=== PATIENT | female | born 1940 | race Caucasian/White ===

== ENCOUNTER 2018-04-21 14:12 | Emergency (ER) | payer OTHER ==
--- NOTE | 2018-04-21 14:21 | ED AMS/SEIZURE/WEAK/DIZZY ---
History of Present Illness General Chief Complaint: General Adult Stated Complaint: DIZZINESS Source: patient, family Exam Limitations: no limitations Allergies Uncoded Allergies: Allergy Other NKA Med Allergies NKDA Triage Nurses Notes Reviewed? yes Onset: Abrupt Duration: hour(s): Timing: multiple episodes today Injury Environment: home Severity: moderate HPI: 77yo female with PMH of HTN, Stage 3 Renal Failure, insomnia c/o dizziness. After waking up this morning, pt had new onset of dizziness, reporting that she felt like the room was spinning. The dizziness worsens when she sits/stands up and feels better when she lies back down. She is also complaining of concurrent nausea and had an episode of vomiting this morning. Vomitus was clear and phlegm -like. Pt reports that she has not been drinking much the last few days and has not eaten anything today. Pt also c/o of "ear popping" and muffled hearing, especially in the left ear, but denies tinnitus. Pt denies any headaches, fevers , chills, chest pain. Denies any recent head trauma or falls. Pt has had insomnia last few nights, so she took 12.5mg Ambien last night to help her fall asleep. She has taken Ambien before and never had any side effects in the past. (Ana GARCIA,Leonila Stafford) Vital Signs & Intake/Output Vital Signs & Intake/Output Vital Signs Date Time Temp Pulse Resp B/P B/P Pulse O2 O2 Flow FiO2 Mean Ox Delivery Rate 04/21 1810 98.0 76 16 154/76 99 Room Air 04/21 1649 68 180/86 ED Intake and Output 04/22 0000 04/21 1200 Intake Total 0 Output Total 0 Balance 0 Intake, Oral 0 Output, Urine 0 Reconcile Medications Meclizine HCl 25 MG TABLET 1 TAB PO TIDPRN PRN dizziness Scopolamine (Transderm-Scop) 1 MG/3 DAY PATCH.TD.3 1 PAT TD Q3D PRN dizziness (Kristi GELLER,Francis Lockett) Past History Travel History Traveled to [place] past 21 day No Medical History Any Pertinent Medical History? see below for history Cardiovascular: hypertension Influenza Vaccine: 05/03/15 Surgical History Surgical History: non-contributory Psychosocial History What is your primary language Montenegrin Family History Hx Contributory? No (Ana GARCIA,Leonila Stafford) Review of Systems Review of Systems Constitutional: Reports: no symptoms. EENTM: Reports: no symptoms. Respiratory: Reports: no symptoms. Cardiovascular: Reports: no symptoms. GI: Reports: abdominal pain. Genitourinary: Reports: no symptoms. Musculoskeletal: Reports: no symptoms. Skin: Reports: no symptoms. Neurological/Psychological: Reports: see HPI. Hematologic/Endocrine: Reports: no symptoms. Immunologic/Allergic: Reports: no symptoms. All Other Systems: Reviewed and Negative (Ana GARCIA,Leonila Stafford) Physical Exam Physical Exam General Appearance: well developed/nourished, no apparent distress, alert, awake Head: atraumatic, normal appearance Eyes: Bilateral: normal appearance, PERRL, EOMI. Ears, Nose, Throat: normal pharynx, hearing grossly normal, RIGHT SIDED CERUMEN PRESENT HOWEVER NO CERUMEN IMPACTION Neck: normal inspection, supple, full range of motion Respiratory: normal breath sounds, no respiratory distress, lungs clear Cardiovascular: regular rate/rhythm, normal peripheral pulses Gastrointestinal: normal bowel sounds, soft, non-tender Back: normal inspection, normal range of motion Extremities: normal range of motion Neurologic/Psych: no motor/sensory deficits, awake, alert, oriented x 3, normal gait, normal mood/affect, operations agent II-XII nml as tested, CEREBELLAR TESTING WNL Skin: intact, normal color, warm/dry Core Measures ACS in differential dx? Yes CVA/TIA Diagnosis No Sepsis Present: No Sepsis Focused Exam Completed? No (Ana GARCIA,Leonila Stafford) Progress Differential Diagnosis: arrythmia, anemia, benign positional vertigo, CVA/stroke , dehydration, encephalitis, hypoxia, intracranial Hem., intracranial mass/tumor , labrynthitis, Meniere's disease, postural hypotension, subarachnoid Hem., UTI/ pyelo, vertebrobasilar insuff Diagnostic Imaging: Viewed by Me: CT Scan. Discussed w/RAD: CT Scan. Radiology Impression: PATIENT: FRANCY VALENCIA PRESENT AGE: 77 PATIENT ACCOUNT NO: [id number] : 40 LOCATION: [facility] ORDERING PHYSICIAN: Leonila GARCIA SERVICE DATE: 04/21/18 EXAM TYPE: CAT - CT HEAD WO IV CONTRAST EXAMINATION: CT HEAD WITHOUT CONTRAST CLINICAL INFORMATION: Intracranial hemorrhage mass dizziness COMPARISON: None TECHNIQUE: Contiguous axial imaging was performed from the skull base to vertex without intravenous administration of contrast. DLP: 583 mGy-cm FINDINGS: There is no evidence of acute intracranial hemorrhage or territorial infarction. No abnormal mass effect or midline shift is seen. Gaspar to white matter differentiation is well preserved. No extra-axial fluid collections are identified. The ventricles are normal in size. There is no abnormal attenuation within the brain parenchyma. The osseous structures and soft tissues are normal. The mastoid air cells and visualized portions of the paranasal sinuses are well aerated. IMPRESSION: No acute intracranial pathology. DICTATED BY: Enrrique Rodriguez MD DATE/TIME DICTATED:04/21/181532 URBAN REDEVELOPMENT SPECIALIST:JHOAN DATE/TIME TRANSCRIBED:04/21/181532 CONFIDENTIAL, DO NOT COPY WITHOUT APPROPRIATE AUTHORIZATION. <Electronically signed in Other Vendor System> SIGNED BY: Enrrique Rodriguez MD 04/21/181538 Initial ED EKG: SINUS RHYTHM @65BPM, NONSPECIFIC ST CHANGES (Ana GARCIA,Leonila Stafford) Plan of Care: Orders Procedure Date/time Status MISTAKE 04/21 1536 Active URINALYSIS 04/21 1513 Complete TROPONIN LEVEL 04/21 1513 Complete COMPREHENSIVE METABOLIC PANEL 04/21 1513 Complete CBC WITHOUT DIFFERENTIAL 04/21 1513 Complete EKG 04/21 1513 Active Current Medications Sig/Dash Start time Last Medication Dose Stop Time Status Admin Sodium Chloride 1,000 ML ONCE ONE 04/21 1630 AC 04/21 (Normal Saline 0.9%) 04/219 1719 Laboratory Tests 04/21/18 1600: Urine Color YEL, Urine Clarity CLEAR, Urine pH 7.5, Ur Specific [place] 1.015, Urine Protein TRACE H, Urine Ketones NEG, Urine Nitrite NEG, Urine Bilirubin NEG, Urine Urobilinogen 0.2, Ur Leukocyte Esterase NEG, Ur Microscopic SEDIMENT EXAMINED, Urine RBC RARE, Urine WBC RARE, Ur Epithelial Cells RARE, Urine Bacteria RARE H, Urine Hemoglobin NEG, Urine Glucose NEG 04/21/18 1538: Anion Gap 10, Estimated GFR 27 L, BUN/Creatinine Ratio 22.8, Glucose 141 H, Calcium 9.7, Total Bilirubin 0.4, AST 22, ALT 25, Alkaline Phosphatase 109, Troponin I < 0.01, Total Protein 7.3, Albumin 4.3, Globulin 3.0, Albumin/ Globulin Ratio 1.4, CBC w Diff NO MAN DIFF REQ, RBC 3.83 L, MCV 93.8, MCH 32.2 H, MCHC 34.3, RDW 12.9, MPV 8.8, Gran % 84.4 H, Lymphocytes % 10.3 L, Monocytes % 4.4, Eosinophils % 0.5, Basophils % 0.4, Absolute Granulocytes 6.4, Absolute Lymphocytes 0.8 L, Absolute Monocytes 0.3, Absolute Eosinophils 0, Absolute Basophils [address] scan is within normal limits. Labs show kidney disease however patient has a baseline history of stage III kidney disease. Patient was medicated with meclizine. She is no longer nauseous, feels improvement following IV fluids and po fluid rehydration. Patient requesting a sandwich. Dizziness was as described earlier were positional, likely related to vertigo. Patient does have cerumen present and right ear, will initiate DeBrox drops. Patient given meclizine and scopolamine prescriptions and encouraged to follow up with her primary care doctor this week. Labs were printed out and given to her for reference. Patient ambulatory without difficulty here in the emergency department. She does not have intractable dizziness. Her vital signs are stable. She is neurologically intact. The patient agrees with the plan of care. Patient was seen and evaluated by Dr. Berry who agrees with the plan of care. (Ana GARCIA,Leonila Stafford) (Kristi GELLER,Francis Lockett) Departure Departure Disposition: HOME OR SELF CARE Condition: Stable Clinical Impression Primary Impression: Dizziness Referrals: Alycia GELLER,Eva Sr (PCP/Family) Additional Instructions: Take meclizine as prescribed as needed for dizziness. You may also wear scopolamine patche behind ear to help with dizziness. Begin DeBrox ear drops to help with ear wax in right ear. Follow-up with your primary care doctor this week to discuss her labs. Return if any worsening symptoms or concerns. Please note that there might be incidental findings in your evaluation that are unrelated to the current emergency department visit. Please notify your primary care doctor about this emergency department visit in order to obtain and review all of the testing performed so that these incidental findings can be monitored as needed. If you had an x-ray performed, please understand that some fractures may not be seen on the initial set of x-rays. If your symptoms persist you might need a repeat set of x-rays to check for such a fracture. If you had a laceration evaluated, please understand that foreign bodies such as glass or wood may not be visible to the naked eye or on plain x-rays. If the wound becomes red, swollen, increasingly more painful or if there is any drainage from the wound, please have it reevaluated by a physician for the possibility of a retained foreign body. If you're unable to follow up as outlined in the discharge instructions please return to the emergency department. Thank you for choosing the [facility] Emergency Department for your care. It was a pleasure to serve you today. Departure Forms: Customer Survey General Discharge Information Prescriptions: Current Visit Scripts Meclizine HCl 1 TAB PO TIDPRN PRN dizziness #21 TAB Scopolamine (Transderm-Scop) 1 PAT TD Q3D PRN dizziness #5 PAT (Ana GARCIA,Leonila Stafford) PA/REFRIGERATION REPAIR SUPERVISOR Co-Sign Statement Statement: ED Attending supervision documentation- [X] 04/21/2018 6:04:35 PM I saw and evaluated the patient. I have also reviewed all the pertinent lab results and diagnostic results. I agree with the findings and the plan of care as documented in the PA's/REFRIGERATION REPAIR SUPERVISOR's documentation. Patient presented for evaluation of dizziness. Physical examination revealed no focal neurologic deficits. During my evaluation however the patient moved her head to the right and felt a spinning dizziness. I feel the patient's presentation is consistent with peripheral vertigo. [] I have reviewed the ED Record and agree with the PA's/REFRIGERATION REPAIR SUPERVISOR's documentation. [] Additions or exceptions (if any) to the PAs/REFRIGERATION REPAIR SUPERVISOR's note and plan are summarized below: [] (Kristi GELLER,Francis Lockett)
--- NOTE | 2018-04-21 15:39 | CT SCAN REPORT ---
EXAMINATION: CT HEAD WITHOUT CONTRAST CLINICAL INFORMATION: Intracranial hemorrhage mass dizziness COMPARISON: None TECHNIQUE: Contiguous axial imaging was performed from the skull base to vertex without intravenous administration of contrast. DLP: 583 mGy-cm FINDINGS: There is no evidence of acute intracranial hemorrhage or territorial infarction. No abnormal mass effect or midline shift is seen. Gaspar to white matter differentiation is well preserved. No extra-axial fluid collections are identified. The ventricles are normal in size. There is no abnormal attenuation within the brain parenchyma. The osseous structures and soft tissues are normal. The mastoid air cells and visualized portions of the paranasal sinuses are well aerated. IMPRESSION: No acute intracranial pathology.
[2018-04-21 15:54] LABS: ABSOLUTE BASOPHIL COUNT 0 /CUMM (0.0-0.2); ABSOLUTE EOSINOPHIL COUNT 0 /CUMM (0.0-0.7); ABSOLUTE GRANULOCYTE CT 6.4 /CUMM (1.4-6.5); ABSOLUTE LYMPH COUNT 0.8 /CUMM (1.2-3.4); ABSOLUTE MONOCYTE COUNT 0.3 /CUMM (0.10-0.60); BASOPHIL % 0.4 % (0.0-2.0); EOSINOPHIL % 0.5 % (0-5); GRANULOCYTE % 84.4 % (42.2-75.2); HEMATOCRIT 35.9 % (37-47); MEAN CORPUSCULAR HGB 32.2 PG (27.0-31.0); MEAN CORPUSCULAR HGB CONC 34.3 G/DL (33.0-37.0); MEAN CORPUSCULAR VOLUME 93.8 FL (81.0-99.0); MEAN PLATELET VOLUME 8.8 FL (7.4-10.4); PLATELET COUNT 269 /CUMM (130-400); RBC DISTRIBUTION WIDTH 12.9 % (11.5-14.5); RED BLOOD CELL CT 3.83 /CUMM (4.20-5.40); WHITE BLOOD CELL COUNT 7.6 /CUMM (4.8-10.8)
[2018-04-21] MEDS ORDERED: MECLIZINE HCL25 MG PO (17:48)
[2018-04-21] MEDS ORDERED: TRANSDERM-SCOP1 EAC1 TD (17:48)
[2018-04-21 18:10] VITALS: BP 154/76
== END 2018-04-21 18:00 ==
LOC: ERH 14:12
PROVIDERS: Physician Assistant
DX: R42 Dizziness and giddiness (principal); R11.2 Nausea with vomiting, unspecified; I10 Essential (primary) hypertension; N18.3 Chronic kidney disease, stage 3 (moderate); G47.00 Insomnia, unspecified
CPT/HCPCS: 81001; 93005; 93010; J2405